=== PATIENT | female | born 1960 | race Caucasian/White ===

== ENCOUNTER → 2016-11-05 | Outpatient (CLI) | payer BC ==
[~2016-11-05] MED LIST: ACULAR 3 ML3 M1 OP; ANTIVERT/2525 M1 PO; BAYER ASPIRIN C81 MG PO; CIPRO500 MG PO; CIPROFLOXACIN500 MG PO; DIFLUCAN150 MG PO; MECLIZINE HCL25 M1 PO; MEDROL DOSEPAK4 MG PO; NITROFURANTOIN100 M2 PO; PYRIDIUM100 MG PO; PYRIDIUM200 MG PO; SYNTHROID0.025 MG PO; SYNTHROID0.05 MG PO; Tobrex Ophth S2.5 ML OPH; ULTRAM100 MG PO; XANAX0.25 MG PO; ZESTRIL20 MG PO; ZITHROMAX Z PA250 MG PO; ZOFRAN4 MG PO; Zofran4 MG PO
== END | disposition home or self-care (01) ==
LOC: RAD 14:38
DX: M25.511 Pain in right shoulder (principal)

== ENCOUNTER 2016-11-12 22:43 | Emergency (ER) | payer BC ==
[~2016-11-12] VITALS: Ht 160 cm; Wt 59.0 kg
[2016-11-12] MEDS ORDERED: ALPRAZOLAM0.25 M2 PO (22:49)
[2016-11-12] MEDS ORDERED: MOBIC7.5 MG PO (22:50)
[2016-11-12] MEDS ORDERED: TRAMADOL HCL50 MG PO (22:50)
[2016-11-12 23:21] LABS: BASO % 0.5 % (0.0-1.0); EOS # 0.1 10*3/uL (0.0-0.4); EOS % 1.9 % (1.0-4.0); HEMATOCRIT 39.8 % (37.0-47.0); HEMOGLOBIN 13.6 g/dl (12.0-16.0); LYMPH # 2.1 10*3/uL (1.3-4.4); LYMPH % 35.7 % (27.0-41.0); MEAN CELL VOLUME 95.7 fl (81.0-99.0); MEAN CORPUSCULAR HGB 32.7 pg (27.0-31.0); MEAN CORPUSCULAR HGB CONC 34.2 g/dl (33.0-37.0); MEAN PLATELET VOLUME 8.9 fl (9.6-12.3); MONO # 0.4 10*3/uL (0.1-1.0); MONO % 7.5 % (3.0-9.0); NEUT # 3.1 10*3/uL (2.3-7.9); NEUT % 54.2 % (47.0-73.0); PLATELET COUNT AUTOMATED 273 10*3/uL (130-400); RED BLOOD COUNT 4.16 10*6/uL (4.10-5.10); RED CELL DISTRI WIDTH 13.3 % (0-14.5); WHITE BLOOD COUNT 5.8 10*3/uL (4.8-10.8)
[2016-11-12 23:37] LABS: ALKALINE PHOSPHATASE 83 U/L (45-117); BILIRUBIN, TOTAL 0.3 mg/dl (0.2-1.0); BUN 13 mg/dl (7-24); CARBON DIOXIDE 28 mmol/L (21-32); CHLORIDE 104 mmol/L (98-107); EST GLOM FILT AFRICAN AMERICAN > 60 ml/min; GLUCOSE 134 mg/dL (65-99); POTASSIUM 3.9 mmol/L (3.5-5.1); SGOT/AST 21 IU/L (3-35); SGPT/ALT 20 U/L (12-78); SODIUM 140 mmol/L (136-145); TOTAL PROTEIN 7.6 gm/dL (6.4-8.2)
[2016-11-12] MEDS ORDERED: HYDROCODONE BIT1 T11 PO (23:54)
[2016-11-12] MEDS ORDERED: MEDROL DOSEPAK4 MG PO (23:54)
== END 2016-11-13 00:28 | disposition home or self-care (01) ==
LOC: ED 22:43
PROVIDERS: Physician Assistant
DX: K80.50 Calculus of bile duct without cholangitis or cholecystitis without obstruction (principal); M54.12 Radiculopathy, cervical region; F17.200 Nicotine dependence, unspecified, uncomplicated; Z90.710 Acquired absence of both cervix and uterus; Z98.890 Other specified postprocedural states; Z79.899 Other long term (current) drug therapy

== ENCOUNTER → 2016-11-22 | Outpatient (CLI) | payer BC ==
[~2016-11-22] MED LIST changes: +ALPRAZOLAM0.25 M2 PO; +HYDROCODONE BIT1 T11 PO; +MOBIC7.5 MG PO; +TRAMADOL HCL50 MG PO
== END | disposition home or self-care (01) ==
LOC: RAD 16:04
DX: R22.2 Localized swelling, mass and lump, trunk (principal)

== ENCOUNTER → 2017-01-28 | Outpatient (CLI) | payer BC ==
[2017-01-28 11:44] LABS: BASO % 0.5 % (0.0-1.0); EOS # 0.1 10*3/uL (0.0-0.4); EOS % 2.7 % (1.0-4.0); HEMATOCRIT 41.3 % (37.0-47.0); HEMOGLOBIN 14.2 g/dl (12.0-16.0); LYMPH # 1.1 10*3/uL (1.3-4.4); LYMPH % 24.8 % (27.0-41.0); MEAN CELL VOLUME 99.3 fl (81.0-99.0); MEAN CORPUSCULAR HGB 34.1 pg (27.0-31.0); MEAN CORPUSCULAR HGB CONC 34.4 g/dl (33.0-37.0); MONO # 0.4 10*3/uL (0.1-1.0); MONO % 8.4 % (3.0-9.0); NEUT # 2.8 10*3/uL (2.3-7.9); NEUT % 63.4 % (47.0-73.0); PLATELET COUNT AUTOMATED 306 10*3/uL (130-400); RED BLOOD COUNT 4.16 10*6/uL (4.10-5.10); RED CELL DISTRI WIDTH 13.1 % (0-14.5); WHITE BLOOD COUNT 4.4 10*3/uL (4.8-10.8)
[2017-01-28 12:15] LABS: ALBUMIN 3.8 gm/dl (3.1-4.5); BUN 13 mg/dl (7-24); CARBON DIOXIDE 29 mmol/L (21-32); CHLORIDE 104 mmol/L (98-107); CHOLESTEROL 201 mg/dL (<200); EST GLOM FILT AFRICAN AMERICAN > 60 ml/min; GLUCOSE 86 mg/dL (65-99); POTASSIUM 4.1 mmol/L (3.5-5.1); SGOT/AST 20 IU/L (3-35); SGPT/ALT 20 U/L (12-78); SODIUM 141 mmol/L (136-145); TRIGLYCERIDES 48 mg/dl (<150); VLDL CHOLESTEROL 10 mg/dL (6-40)
[2017-01-28 12:23] LABS: ALKALINE PHOSPHATASE 86 U/L (45-117); BILIRUBIN, TOTAL 0.4 mg/dl (0.2-1.0); FREE T4 1.01 ng/dl (0.76-1.46); HDL CHOLESTEROL 109 mg/dl (40-60); LDL CHOLESTEROL 82 mg/dL (9-159); THYROID STIM HORMONE (HS) 0.943 uIU/ml (0.358-4.75); TOTAL PROTEIN 7.5 gm/dL (6.4-8.2)
[2017-01-28 12:34] LABS: VITAMIN D, 25-HYDROXY 31.2 ng/mL (30-100)
[2017-01-28 12:35] LABS: FOLIC ACID 21.55 ng/mL (>5.38)
== END | disposition home or self-care (01) ==
LOC: LAB 11:13
PROVIDERS: Internal Medicine
DX: Z13.220 Encounter for screening for lipoid disorders (principal); Z13.21 Encounter for screening for nutritional disorder; Z13.1 Encounter for screening for diabetes mellitus; R53.81 Other malaise; E55.9 Vitamin D deficiency, unspecified; R06.02 Shortness of breath; R05 Cough; R09.81 Nasal congestion; Z87.891 Personal history of nicotine dependence

== ENCOUNTER → 2017-09-02 | Outpatient (CLI) | payer BC ==
[2017-09-02 10:22] LABS: EOS # 0.2 10*3/uL (0.0-0.4); EOS % 5.9 % (1.0-4.0); HEMATOCRIT 39.7 % (37.0-47.0); HEMOGLOBIN 13.6 g/dl (12.0-16.0); LYMPH # 0.9 10*3/uL (1.3-4.4); LYMPH % 32.2 % (27.0-41.0); MEAN CELL VOLUME 94.1 fl (81.0-99.0); MEAN CORPUSCULAR HGB 32.2 pg (27.0-31.0); MEAN CORPUSCULAR HGB CONC 34.3 g/dl (33.0-37.0); MEAN PLATELET VOLUME 8.9 fl (9.6-12.3); MONO # 0.2 10*3/uL (0.1-1.0); MONO % 7.7 % (3.0-9.0); NEUT # 1.5 10*3/uL (2.3-7.9); NEUT % 52.9 % (47.0-73.0); PLATELET COUNT AUTOMATED 252 10*3/uL (130-400); RED BLOOD COUNT 4.22 10*6/uL (4.10-5.10); RED CELL DISTRI WIDTH 12.1 % (0-14.5); WHITE BLOOD COUNT 2.9 10*3/uL (4.8-10.8)
[2017-09-02 10:54] LABS: ALKALINE PHOSPHATASE 89 U/L (45-117); BUN 10 mg/dl (7-24); CHLORIDE 104 mmol/L (98-107); CHOLESTEROL 189 mg/dL (<200); FREE T4 0.99 ng/dl (0.76-1.46); HDL CHOLESTEROL 103 mg/dl (40-60); LDL CHOLESTEROL 74 mg/dL (9-159); POTASSIUM 4.6 mmol/L (3.5-5.1); SGOT/AST 22 IU/L (3-35); SGPT/ALT 22 U/L (12-78); SODIUM 140 mmol/L (136-145); TOTAL PROTEIN 7.6 gm/dL (6.4-8.2); TRIGLYCERIDES 60 mg/dl (<150); VLDL CHOLESTEROL 12 mg/dL (6-40)
[2017-09-02 10:59] LABS: THYROID STIM HORMONE (HS) 0.791 uIU/ml (0.358-4.75)
== END | disposition home or self-care (01) ==
LOC: LAB 10:01
PROVIDERS: Internal Medicine
DX: Z13.220 Encounter for screening for lipoid disorders (principal); Z13.1 Encounter for screening for diabetes mellitus; Z13.21 Encounter for screening for nutritional disorder; E78.2 Mixed hyperlipidemia; R53.81 Other malaise; E55.9 Vitamin D deficiency, unspecified

== ENCOUNTER → 2017-09-05 | Outpatient (CLI) | payer BC ==
[2017-09-05 14:45] LABS: BASO % 0.3 % (0.0-1.0); EOS # 0.1 10*3/uL (0.0-0.4); HEMATOCRIT 39.1 % (37.0-47.0); HEMOGLOBIN 13.7 g/dl (12.0-16.0); LYMPH # 1.1 10*3/uL (1.3-4.4); LYMPH % 15.5 % (27.0-41.0); MEAN CELL VOLUME 92.7 fl (81.0-99.0); MEAN CORPUSCULAR HGB 32.5 pg (27.0-31.0); MEAN PLATELET VOLUME 8.8 fl (9.6-12.3); MONO # 0.5 10*3/uL (0.1-1.0); MONO % 6.5 % (3.0-9.0); NEUT # 5.4 10*3/uL (2.3-7.9); NEUT % 76.4 % (47.0-73.0); PLATELET COUNT AUTOMATED 261 10*3/uL (130-400); RED BLOOD COUNT 4.22 10*6/uL (4.10-5.10); RED CELL DISTRI WIDTH 12.3 % (0-14.5); WHITE BLOOD COUNT 7.1 10*3/uL (4.8-10.8)
== END | disposition home or self-care (01) ==
LOC: LAB 14:08
PROVIDERS: Internal Medicine
DX: D72.9 Disorder of white blood cells, unspecified (principal)

== ENCOUNTER 2017-09-13 13:32 | Inpatient (IN) | payer BC ==
--- NOTE | ~2017-09-13 | PR ---
[place], [place] PROGRESS NOTE [id number] UN[facility] #: [id number] ROOM: 532 DOCTOR: URIAH FOURNIER MD BIRTHDATE: [birth year] DOS: 09/14/2017 SUBJECTIVE: The patient is feeling much better this morning. She is able to complete sentences while she is talking without difficulty breathing. She had a fairly good night after the IV steroids were started. OBJECTIVE: VITAL SIGNS: Graphic trend shows pressure 120/72, pulse of 86, respirations 18, temperature 97.7. LUNGS: Clear this morning. HEART: Regular. ABDOMEN: Soft. EXTREMITIES: Without any edema. ASSESSMENT AND PLAN: Acute exacerbation of chronic obstructive pulmonary disease with acute respiratory distress syndrome, which is corrected and improved this morning. The plan is to discharge her home. She has found an old nebulizer that belongs to her who . We will start her on breathing treatments at home, so she can be discharged today. URIAH FOURNIER MD CM:PNTRANS [id number] URIAH FOURNIER MD 09/14/17 1348 interface
--- NOTE | ~2017-09-13 | WRIGHTHP ---
[place], [place] PATIENT HISTORY AND PHYSICAL EXAM NAME: MAURA MACIAS [facility] #: [id number] UNIT #: [id number] ROOM: 532 DOCTOR: URIAH FOURNIER MD BIRTHDATE: [birth year] DOS: 09/13/2017 HISTORY OF PRESENT ILLNESS: This patient is 57 years old. She comes into the office with complaints of increasing shortness of breath. The patient has had bronchitis recently, was treated with antibiotics and steroids, but unfortunately continues to smoke. By the time, she arrived to the Emergency Room. She had hard time breathing with difficulty holding conversations. She did not have any chest pains or palpitations, does not have any fever or chills, does not have any nausea or any emesis. She was transferred to the hospital for admission. Oxygen saturation was normal on room air, but she was quite tachycardic when she exercised. Heart rate sometimes going to 130s indicating respiratory distress. PAST MEDICAL HISTORY: Significant for; 1. Benign hypertension. 2. Hypothyroidism. 3. Moderate cigarette smoker. 4. Chronic back pain. 5. Generalized anxiety disorder. MEDICATIONS: She is on currently are lisinopril 20, levothyroxine 50 mcg, Xanax 0.25 t.i.d., tramadol 50 mg q.i.d., Meloxicam 7.5 b.i.d., vitamin D 50,000 units once a week and potassium 10 daily. SOCIAL HISTORY: Smoker of about half to 1 pack of cigarettes a day. Denies using any alcohol. PHYSICAL EXAMINATION: GENERAL: The patient is awake and alert and oriented. VITAL SIGNS: Blood pressure is 120/72, pulse of 86, respirations 18 and temperature 97.7. LUNGS: Diminished breath sounds. Scattered wheezes and rhonchi heard. HEART: Regular. ABDOMEN: Soft, scaphoid and nontender. EXTREMITIES: Without any edema. LABORATORY DATA: White cell count is 74.5, hemoglobin 14.3 and hematocrit 41.0. Chest x-ray showed COPD. BMP: Glucose 90, BUN 12 and creatinine 0.62. Electrolytes normal. ASSESSMENT AND PLAN: 1. Acute exacerbation of chronic obstructive pulmonary disease. The patient is placed on IV steroids and breathing treatments. 2. Acute tracheobronchitis, failed outpatient treatment with steroids and antibiotics. The patient has been admitted for the IV treatment with antibiotics and steroids. 3. Benign hypertension, controlled. 4. Chronic back pain. Continue home medications. [place], [place] PATIENT HISTORY AND PHYSICAL EXAM [facility]: [id number] UN[facility] #: [id number] ROOM: [facility] DOCTOR: URIAH FOURNIER MD BIRTHDATE: [birth year] URIAH FOURNIER MD CM:HISPHYS:PATIENT HISTORY AND PHYSICAL EXAMINATION 9 URIAH FOURNIER MD 09/14/17919 interface
[2017-09-13 15:02] LABS: BASO % 0.7 % (0.0-1.0); EOS # 0.1 10*3/uL (0.0-0.4); EOS % 1.3 % (1.0-4.0); HEMATOCRIT 41.4 % (37.0-47.0); LYMPH # 1.5 10*3/uL (1.3-4.4); LYMPH % 32.5 % (27.0-41.0); MEAN CELL VOLUME 95.2 fl (81.0-99.0); MEAN CORPUSCULAR HGB 32.2 pg (27.0-31.0); MEAN CORPUSCULAR HGB CONC 33.8 g/dl (33.0-37.0); MEAN PLATELET VOLUME 8.9 fl (9.6-12.3); MONO # 0.4 10*3/uL (0.1-1.0); MONO % 9.5 % (3.0-9.0); NEUT # 2.5 10*3/uL (2.3-7.9); NEUT % 55.8 % (47.0-73.0); PLATELET COUNT AUTOMATED 306 10*3/uL (130-400); RED BLOOD COUNT 4.35 10*6/uL (4.10-5.10); RED CELL DISTRI WIDTH 12.5 % (0-14.5); WHITE BLOOD COUNT 4.5 10*3/uL (4.8-10.8)
[2017-09-13] MEDS ORDERED: POTASSIUM CHLO10 ME5 PO (15:22)
[2017-09-13] MEDS ORDERED: VITAMIN D50000 UNIT PO (15:22)
[2017-09-13 15:26] LABS: BUN 12 mg/dl (7-24); CHLORIDE 103 mmol/L (98-107); CREATININE 0.62 mg/dL (0.55-1.02); POTASSIUM 4.9 mmol/L (3.5-5.1); SODIUM 138 mmol/L (136-145)
[2017-09-13 16:00] VITALS: BP 120/73
[2017-09-13 20:00] VITALS: BP 134/86
[2017-09-14] VITALS: BP 121/53
[2017-09-14 08:00] VITALS: BP 120/72
[2017-09-14] MEDS ORDERED: DUONEB 3 MG/3 ML3 M1 INH (08:49)
[2017-09-14] MEDS ORDERED: CEFUROXIME AXE250 MG PO (08:49)
[2017-09-14] MEDS ORDERED: PREDNISONE5 MG PO (08:49)
== END 2017-09-14 09:40 | disposition home or self-care (01) | DRG 191 ==
LOC: 5E 13:32
PROVIDERS: Internal Medicine
DX: J44.0 Chronic obstructive pulmonary disease with (acute) lower respiratory infection (principal); J80 Acute respiratory distress syndrome; J44.1 Chronic obstructive pulmonary disease with (acute) exacerbation; G89.29 Other chronic pain; I10 Essential (primary) hypertension; J20.9 Acute bronchitis, unspecified; M54.9 Dorsalgia, unspecified

== ENCOUNTER 2017-12-25 07:08 | Emergency (ER) | payer BC ==
[~2017-12-25] VITALS: Ht 160 cm; Wt 56.7 kg
[~2017-12-25 07:08] MED LIST changes: +CEFUROXIME AXE250 MG PO; +DUONEB 3 MG/3 ML3 M1 INH; +POTASSIUM CHLO10 ME5 PO; +PREDNISONE5 MG PO; +VITAMIN D50000 UNIT PO
[2017-12-25] MEDS ORDERED: PROVENTIL HFA6.7 GM INH (07:31)
[2017-12-25 07:37] LABS: BASO # 0.1 10*3/uL (0.0-0.1); EOS # 0.2 10*3/uL (0.0-0.4); EOS % 4.7 % (1.0-4.0); HEMATOCRIT 38.2 % (37.0-47.0); HEMOGLOBIN 12.9 g/dl (12.0-16.0); LYMPH # 1.5 10*3/uL (1.3-4.4); LYMPH % 29.2 % (27.0-41.0); MEAN CELL VOLUME 95.5 fl (81.0-99.0); MEAN CORPUSCULAR HGB 32.3 pg (27.0-31.0); MEAN CORPUSCULAR HGB CONC 33.8 g/dl (33.0-37.0); MEAN PLATELET VOLUME 9.1 fl (9.6-12.3); MONO # 0.5 10*3/uL (0.1-1.0); MONO % 8.9 % (3.0-9.0); NEUT # 2.8 10*3/uL (2.3-7.9); PLATELET COUNT AUTOMATED 299 10*3/uL (130-400); RED CELL DISTRI WIDTH 12.4 % (0-14.5); WHITE BLOOD COUNT 5.1 10*3/uL (4.8-10.8)
[2017-12-25 07:49] LABS: ACT PARTIAL THROMBO TIME 24.3 SECONDS (20.8-31.5); INTERNATIONAL NORM RATIO 0.9 (2.0-3.5)
[2017-12-25 07:57] LABS: ALBUMIN 3.6 gm/dl (3.1-4.5); ALKALINE PHOSPHATASE 83 U/L (45-117); BUN 13 mg/dl (7-24); CHLORIDE 106 mmol/L (98-107); CREATININE 0.63 mg/dL (0.55-1.02); POTASSIUM 4.2 mmol/L (3.5-5.1); SGOT/AST 25 IU/L (3-35); SGPT/ALT 20 U/L (12-78); SODIUM 141 mmol/L (136-145); TOTAL PROTEIN 7.1 gm/dL (6.4-8.2); TROPONIN I < 0.015 ng/ml (<0.045)
[2017-12-25] MEDS ORDERED: PREDNISONE50 MG PO (08:12)
== END 2017-12-25 08:45 | disposition home or self-care (01) ==
LOC: ED 07:08
PROVIDERS: Emergency Medicine
DX: J44.1 Chronic obstructive pulmonary disease with (acute) exacerbation (principal); F41.9 Anxiety disorder, unspecified; I10 Essential (primary) hypertension; Z79.899 Other long term (current) drug therapy

== ENCOUNTER → 2019-03-16 | Outpatient (CLI) | payer BC ==
[~2019-03-16] MED LIST changes: +PREDNISONE50 MG PO; +PROVENTIL HFA6.7 GM INH
[2019-03-17 07:08] LABS: RHEUMATOID ARTHRITIS FACTOR 11.7 IU/mL (0.0-13.9)
[2019-03-18 15:06] LABS: ANTI-DSDNA ANTIBODIES 096339 <1 IU/mL (0-9)
[2019-03-18 19:07] LABS: CCP ANTIBODIES IGG/IGA 5 units (0-19)
== END | disposition home or self-care (01) ==
LOC: LAB 16:37
PROVIDERS: Internal Medicine
DX: M06.4 Inflammatory polyarthropathy (principal)

== ENCOUNTER 2019-05-21 20:58 | Inpatient (IN) | payer BC ==
[2019-05-21] VITALS (9 sets, daily range): BP systolic 153–188; BP diastolic 82–105
[~2019-05-21] VITALS: Ht 160 cm; Wt 70.5 kg
[~2019-05-21 20:58] MED LIST changes: -SYNTHROID0.05 MG PO; +Synthroid,Levo50 MCG PO
[2019-05-21 21:26] LABS: BASO % 0.8 % (0.0-1.0); EOS # 0.3 10*3/uL (0.0-0.4); EOS % 5.1 % (1.0-4.0); HEMATOCRIT 35.2 % (37.0-47.0); HEMOGLOBIN 11.8 g/dl (12.0-16.0); LYMPH # 1.6 10*3/uL (1.3-4.4); LYMPH % 31.2 % (27.0-41.0); MEAN CELL VOLUME 97.5 fl (81.0-99.0); MEAN CORPUSCULAR HGB 32.7 pg (27.0-31.0); MEAN CORPUSCULAR HGB CONC 33.5 g/dl (33.0-37.0); MEAN PLATELET VOLUME 9.9 fl (9.6-12.3); MONO # 0.5 10*3/uL (0.1-1.0); MONO % 9.7 % (3.0-9.0); NEUT # 2.8 10*3/uL (2.3-7.9); NEUT % 52.8 % (47.0-73.0); PLATELET COUNT AUTOMATED 330 10*3/uL (130-400); RED BLOOD COUNT 3.61 10*6/uL (4.10-5.10); RED CELL DISTRI WIDTH 13.4 % (0-14.5); WHITE BLOOD COUNT 5.3 10*3/uL (4.8-10.8)
[2019-05-21 21:58] LABS: ALBUMIN 3.9 gm/dl (3.1-4.5); ALKALINE PHOSPHATASE 85 U/L (45-117); BUN 11 mg/dl (7-24); CHLORIDE 106 mmol/L (98-107); CREATININE 0.71 mg/dL (0.55-1.02); POTASSIUM 3.6 mmol/L (3.5-5.1); SGOT/AST 21 IU/L (3-35); SGPT/ALT 26 U/L (12-78); SODIUM 138 mmol/L (136-145); TROPONIN I < 0.015 ng/ml (<0.045)
[2019-05-21 22:20] LABS: ACT PARTIAL THROMBO TIME 27.4 SECONDS (20.0-32.1); INTERNATIONAL NORM RATIO 0.9 (2.0-3.5)
--- NOTE | 2019-05-21 22:41 | NUR ---
PT RETURNED FROM CT. PT REMAINS PAIN FREE.
[2019-05-22] VITALS (8 sets, daily range): BP systolic 106–182; BP diastolic 63–98
--- NOTE | 2019-05-22 00:30 | NUR ---
A 59 YEAR OLD FEMALE PATIENT, admitted to ICU, under the services of URIAH Maradiaga MD with a diagnosis of CHEST PAIN. Chief complaint is MIDSTERNAL/LEFT CHEST PAIN, WORSENS WITH DEEP BREATH. Patient arrived via CART FROM ER. Monitor applied. Initial assessment completed. Vital signs taken and recorded. See assessment for past medical history, medications and allergies. Patient and/or family oriented to unit. [facility] ICU(TELEMETRY PATIENT) visitation policy reviewed. Clothing/patient valuable form completed. MILTON MCCULLOUGH
--- NOTE | 2019-05-22 01:00 | NUR ---
SPOKE WITH DR FOURNIER REGARDING INPATIENT, ORDERS RECIEVED.
--- NOTE | 2019-05-22 02:00 | NUR ---
MEDICATION RECONCILLIATION COMPLETED WITH PATIENT USING MEDICATION CLAIMS HISTORY AND PATIENTS OWN RECOLLECTION
[2019-05-22] MEDS ORDERED: Amitriptyline H10 MG PO (02:01)
--- NOTE | 2019-05-22 05:45 | NUR ---
DR FRANCO CALLED REGARDING CHANNEL MAN CONSULT, STATES THAT DR MELLO WILL BE ON THIS MORNING AND THAT HE WILL SEE THE PATIENT.
[2019-05-22 06:20] LABS: EOS # 0.3 10*3/uL (0.0-0.4); EOS % 8.3 % (1.0-4.0); HEMATOCRIT 33.2 % (37.0-47.0); HEMOGLOBIN 10.8 g/dl (12.0-16.0); LYMPH # 1.3 10*3/uL (1.3-4.4); LYMPH % 33.1 % (27.0-41.0); MEAN CELL VOLUME 97.9 fl (81.0-99.0); MEAN CORPUSCULAR HGB 31.9 pg (27.0-31.0); MEAN CORPUSCULAR HGB CONC 32.5 g/dl (33.0-37.0); MEAN PLATELET VOLUME 9.5 fl (9.6-12.3); MONO # 0.4 10*3/uL (0.1-1.0); MONO % 11.1 % (3.0-9.0); NEUT # 1.8 10*3/uL (2.3-7.9); NEUT % 46.2 % (47.0-73.0); PLATELET COUNT AUTOMATED 292 10*3/uL (130-400); RED BLOOD COUNT 3.39 10*6/uL (4.10-5.10); RED CELL DISTRI WIDTH 13.2 % (0-14.5); WHITE BLOOD COUNT 3.9 10*3/uL (4.8-10.8)
[2019-05-22 06:43] LABS: CHLORIDE 106 mmol/L (98-107); POTASSIUM 3.3 mmol/L (3.5-5.1); SODIUM 140 mmol/L (136-145)
[2019-05-22 06:52] LABS: ALBUMIN 3.5 gm/dl (3.1-4.5); ALKALINE PHOSPHATASE 75 U/L (45-117); BUN 9 mg/dl (7-24); SGOT/AST 20 IU/L (3-35); SGPT/ALT 25 U/L (12-78); TOTAL PROTEIN 6.4 gm/dL (6.4-8.2)
--- NOTE | 2019-05-22 08:42 | NUR ---
CLONIDINE 0.1MG GIVEN PER ORDER FOR BP 180/98 AFTER ORDER RECEIVED FROM DR FOURNIER.
--- NOTE | 2019-05-22 10:54 | NUR ---
PT TO STRESS TEST VIA WC.
--- NOTE | 2019-05-22 11:35 | NUR ---
INFORMED CONSENT SIGNED FOR LEXISCAN STRESS TEST WITH DR. MARTINEZ. RESTING EKG NSR, HR 67, BP 140/84. PULSE OX 92%, LUNGS BILATERAL RHONCHI. COMPLETED ONE MINUTE OF LEXISCAN PROTOCOL RECEIVING LEXISCAN 0.4MG OVER 10 SEC[address] NO ARRHYTHMI[address] OR ST CHANGES NOTED. PT C/O SOB, CHEST DISCOMFORT AND HEADACHE. LAST RECOVERY HR 100, BP 132/84. WAITING NUCLEAR SCANNING IN STABLE CONDITION.
--- NOTE | 2019-05-22 12:45 | NUR ---
PT RETURNED TO FLOOR VIA W/C FROM CARDIAC REHAB. NO C/O VOICED AT PRESENT TIME. CALL LIGHT IN REACH.
--- NOTE | 2019-05-22 15:00 | NUR ---
Storage Administrator in to talk to patient. Patient states lives at home alone with her family checking in on her. There are 5 steps in the home. Physician: Dr. Karime [facility] Patient's level of ADLs: INDEPENDENT Patient has working utilities: yes DME: nebulizer Follow-up physician's appointment after d/c: she prefers to make her own follow up appt after discharge Does patient want to access PORTAL?: no Discharge plan discussed with patient. She lives at home alone with her family checking in on her. She is independent in her ADLs and ambulation. Discussed home health care services and she denies any home needs at this time. When medically stable she will be discharged to home. She will drive herself home as her car is here in the parking lot. DONYA AMAYA
--- NOTE | 2019-05-22 17:13 | NUR ---
PATIENT MEDICATED WITH ULTRAM PER PRN ORDER FOR C/O PAIN.
[2019-05-23] VITALS: BP 139/83
[2019-05-23 08:00] VITALS: BP 156/100
[2019-05-23] MEDS ORDERED: CEFUROXIME AXE250 MG PO (08:41)
[2019-05-23] MEDS ORDERED: PREDNISONE5 MG PO (08:41)
--- NOTE | 2019-05-23 09:15 | NUR ---
Discharge instructions reviewed with patient/family. Patient receptive and verbalizes understanding. Follow-up care arranged. Written instructions given to patient/family. FELICITAS ALEXANDRA
== END 2019-05-23 10:10 | disposition home or self-care (01) | DRG 191 ==
LOC: ED 20:58 → EDHOLD 23:53 → ICCU 23:53 → 4E 05-22 12:51
PROVIDERS: Emergency Medicine; ADMIT Internal Medicine
PROC: 4A02XM4 Measurement of Cardiac Total Activity, External Approach (ICD-10-PCS; principal; 2019-05-22)
PROC: 3E073KZ Introduction of Other Diagnostic Substance into Coronary Artery, Percutaneous Approach (ICD-10-PCS; principal; 2019-05-22)
DX: J44.1 Chronic obstructive pulmonary disease with (acute) exacerbation (principal); J96.11 Chronic respiratory failure with hypoxia; R07.2 Precordial pain; I10 Essential (primary) hypertension; F17.210 Nicotine dependence, cigarettes, uncomplicated; F41.1 Generalized anxiety disorder; E03.9 Hypothyroidism, unspecified; Z90.710 Acquired absence of both cervix and uterus; Z98.891 History of uterine scar from previous surgery; Z82.49 Family history of ischemic heart disease and other diseases of the circulatory system; Z83.3 Family history of diabetes mellitus; Z80.9 Family history of malignant neoplasm, unspecified

== ENCOUNTER → 2019-07-10 | Outpatient (CLI) | payer BC ==
[~2019-07-10] MED LIST changes: +Amitriptyline H10 MG PO
== END | disposition home or self-care (01) ==
LOC: LAB 14:54
DX: J45.901 Unspecified asthma with (acute) exacerbation (principal)

== ENCOUNTER 2019-08-14 18:49 | Emergency (ER) | payer BC ==
[~2019-08-14] VITALS: Ht 152.4 cm; Wt 68.0 kg
[2019-08-14 20:11] LABS: BASO % 0.5 % (0.0-1.0); EOS # 0.1 10*3/uL (0.0-0.4); EOS % 1.1 % (1.0-4.0); HEMATOCRIT 43.5 % (37.0-47.0); HEMOGLOBIN 14.7 g/dl (12.0-16.0); LYMPH # 1.2 10*3/uL (1.3-4.4); LYMPH % 20.8 % (27.0-41.0); MEAN CELL VOLUME 95.6 fl (81.0-99.0); MEAN CORPUSCULAR HGB 32.3 pg (27.0-31.0); MEAN CORPUSCULAR HGB CONC 33.8 g/dl (33.0-37.0); MONO # 0.5 10*3/uL (0.1-1.0); MONO % 8.5 % (3.0-9.0); NEUT # 3.9 10*3/uL (2.3-7.9); NEUT % 68.9 % (47.0-73.0); PLATELET COUNT AUTOMATED 340 10*3/uL (130-400); RED BLOOD COUNT 4.55 10*6/uL (4.10-5.10); RED CELL DISTRI WIDTH 12.3 % (0-14.5); WHITE BLOOD COUNT 5.6 10*3/uL (4.8-10.8)
[2019-08-14 20:23] LABS: ACT PARTIAL THROMBO TIME 28.5 SECONDS (20.0-32.1); INTERNATIONAL NORM RATIO 0.9 (2.0-3.5)
[2019-08-14 20:27] LABS: ALBUMIN 4.5 gm/dl (3.1-4.5); ALKALINE PHOSPHATASE 94 U/L (45-117); BUN 12 mg/dl (7-24); CHLORIDE 101 mmol/L (98-107); LIPASE 110 U/L (73-393); POTASSIUM 3.6 mmol/L (3.5-5.1); SGOT/AST 17 IU/L (3-35); SGPT/ALT 21 U/L (12-78); SODIUM 134 mmol/L (136-145); TOTAL PROTEIN 8.2 gm/dL (6.4-8.2)
[2019-08-14 20:36] LABS: TROPONIN I < 0.015 ng/ml (<0.045)
[2019-08-14 20:58] LABS: BILIRUBIN NEGATIVE (NEGATIVE); BLOOD NEGATIVE (NEGATIVE); CLARITY CLEAR (CLEAR); COLOR YELLOW (YELLOW); GLUCOSE NEGATIVE (NEGATIVE); KETONE NEGATIVE (NEGATIVE); LEUKO ESTERASE NEGATIVE (NEGATIVE); NITRITE NEGATIVE (NEGATIVE); PH 6.5 (5.0-9.0); SPECIFIC GRAVITY <= 1.005 (1.005-1.030); UROBILINOGEN 0.2 E.U./dl (0.2-1.0)
[2019-08-14 21:07] LABS: BACTERIA 1+
== END 2019-08-14 21:05 | disposition home or self-care (01) ==
LOC: ED 18:49
PROVIDERS: Physician Assistant
DX: F41.9 Anxiety disorder, unspecified (principal); R41.0 Disorientation, unspecified; R42 Dizziness and giddiness; I10 Essential (primary) hypertension; J44.9 Chronic obstructive pulmonary disease, unspecified; G43.909 Migraine, unspecified, not intractable, without status migrainosus; E07.9 Disorder of thyroid, unspecified; F17.200 Nicotine dependence, unspecified, uncomplicated; Z79.2 Long term (current) use of antibiotics; Z79.899 Other long term (current) drug therapy; Z90.710 Acquired absence of both cervix and uterus; Z90.49 Acquired absence of other specified parts of digestive tract

== ENCOUNTER 2019-08-27 13:24 | Emergency (ER) | payer OTHER ==
[~2019-08-27] VITALS: Ht 152.4 cm; Wt 54.4 kg
[2019-08-27 14:45] LABS: BASO # 0.1 10*3/uL (0.0-0.1); BASO % 0.8 % (0.0-1.0); EOS # 0.2 10*3/uL (0.0-0.4); EOS % 2.3 % (1.0-4.0); HEMATOCRIT 42.5 % (37.0-47.0); HEMOGLOBIN 14.5 g/dl (12.0-16.0); LYMPH # 1.1 10*3/uL (1.3-4.4); LYMPH % 16.9 % (27.0-41.0); MEAN CELL VOLUME 96.2 fl (81.0-99.0); MEAN CORPUSCULAR HGB 32.8 pg (27.0-31.0); MEAN CORPUSCULAR HGB CONC 34.1 g/dl (33.0-37.0); MEAN PLATELET VOLUME 9.4 fl (9.6-12.3); MONO # 0.5 10*3/uL (0.1-1.0); MONO % 7.7 % (3.0-9.0); NEUT # 4.8 10*3/uL (2.3-7.9); PLATELET COUNT AUTOMATED 338 10*3/uL (130-400); RED BLOOD COUNT 4.42 10*6/uL (4.10-5.10); RED CELL DISTRI WIDTH 12.4 % (0-14.5); WHITE BLOOD COUNT 6.6 10*3/uL (4.8-10.8)
[2019-08-27 15:16] LABS: ALBUMIN 4.5 gm/dl (3.1-4.5); ALKALINE PHOSPHATASE 94 U/L (45-117); BUN 10 mg/dl (7-24); CHLORIDE 99 mmol/L (98-107); CREATININE 0.79 mg/dL (0.55-1.02); POTASSIUM 4.1 mmol/L (3.5-5.1); SGOT/AST 19 IU/L (3-35); SGPT/ALT 21 U/L (12-78); SODIUM 134 mmol/L (136-145); TOTAL PROTEIN 8.3 gm/dL (6.4-8.2)
[2019-08-27 15:21] LABS: TROPONIN I < 0.015 ng/ml (<0.045)
[2019-08-27] MEDS ORDERED: VISTARIL25 M2 PO (15:57)
== END 2019-08-27 16:19 | disposition home or self-care (01) ==
LOC: ED 13:24
PROVIDERS: Physician Assistant
DX: F41.9 Anxiety disorder, unspecified (principal); R42 Dizziness and giddiness; F32.9 Major depressive disorder, single episode, unspecified; R25.1 Tremor, unspecified; G43.909 Migraine, unspecified, not intractable, without status migrainosus; I10 Essential (primary) hypertension; J44.9 Chronic obstructive pulmonary disease, unspecified; E07.9 Disorder of thyroid, unspecified; F17.200 Nicotine dependence, unspecified, uncomplicated; Z90.710 Acquired absence of both cervix and uterus; Z90.49 Acquired absence of other specified parts of digestive tract; Z79.2 Long term (current) use of antibiotics; Z79.899 Other long term (current) drug therapy

== ENCOUNTER 2019-08-29 13:54 | Inpatient (IN) | payer OTHER ==
[~2019-08-29] VITALS: Ht 154.9 cm; Wt 63.7 kg
[~2019-08-29 13:54] MED LIST changes: +VISTARIL25 M2 PO
--- NOTE | 2019-08-29 14:30 | NUR ---
Time: 0 A 59 year old FEMALE admitted to under services of URIAH NGUYEN MD. Pt. arrived via ambulatory from [place]. Chief complaint: .TACHYCARDIA MICHEAL RODRIGEZ
[2019-08-29] MEDS ORDERED: CELEBREX100 MG PO (15:43)
[2019-08-29 16:00] VITALS: BP 125/80
[2019-08-29 17:08] LABS: BASO # 0.1 10*3/uL (0.0-0.1); BASO % 0.8 % (0.0-1.0); EOS # 0.1 10*3/uL (0.0-0.4); EOS % 1.2 % (1.0-4.0); HEMOGLOBIN 14.1 g/dl (12.0-16.0); LYMPH # 1.4 10*3/uL (1.3-4.4); LYMPH % 21.4 % (27.0-41.0); MEAN CELL VOLUME 94.5 fl (81.0-99.0); MEAN CORPUSCULAR HGB 32.5 pg (27.0-31.0); MEAN CORPUSCULAR HGB CONC 34.4 g/dl (33.0-37.0); MEAN PLATELET VOLUME 9.1 fl (9.6-12.3); MONO # 0.6 10*3/uL (0.1-1.0); MONO % 8.5 % (3.0-9.0); NEUT # 4.5 10*3/uL (2.3-7.9); NEUT % 67.8 % (47.0-73.0); PLATELET COUNT AUTOMATED 310 10*3/uL (130-400); RED BLOOD COUNT 4.34 10*6/uL (4.10-5.10); RED CELL DISTRI WIDTH 12.1 % (0-14.5); WHITE BLOOD COUNT 6.6 10*3/uL (4.8-10.8)
[2019-08-29 17:20] LABS: BUN 10 mg/dl (7-24); CHLORIDE 98 mmol/L (98-107); CREATININE 0.67 mg/dL (0.55-1.02); SODIUM 133 mmol/L (136-145)
[2019-08-29 20:00] VITALS: BP 90/59
--- NOTE | 2019-08-29 21:07 | NUR ---
PRN VISTERIL GIVEN FOR DIFFICULTY SLEEPING. WILL MONITOR AND REASSESS PATIENT.
--- NOTE | 2019-08-29 22:00 | NUR ---
PRN VISTERIL WAS EFFECTIVE. PT IS CURRENTLY SLEEPING AND SHOWS NO SIGNS OF DISTRESS.
[2019-08-29 23:50] VITALS: BP 90/54
--- NOTE | 2019-08-30 05:16 | NUR ---
24 HR chart check completed.
--- NOTE | 2019-08-30 08:17 | NUR ---
IN TO DO PATIENT ASSESSMENT AND SHE IS GETTING AN ECHO DONE, WILL COME BACK ONE THEY ARE COMPLETE WITH ECHO
--- NOTE | 2019-08-30 09:00 | NUR ---
Load Manager in to see patient. She is currently having an echo completed at bedside. Will follow up at a later time.
--- NOTE | 2019-08-30 09:24 | NUR ---
CONTACTED DR FOURNIER PER PT REQUEST OF NOT HAVING A BOWEL MOVEMENT IN 3-4 DAY, PUT ORDERS IN WANTED
[2019-08-30 09:59] VITALS: BP 102/62
[2019-08-30 10:55] LABS: FREE T4 1.11 ng/dl (0.76-1.46)
[2019-08-30 10:59] LABS: THYROID STIM HORMONE (HS) 1.28 uIU/ml (0.358-4.75)
--- NOTE | 2019-08-30 11:55 | NUR ---
Nutritional Support Services Note: Pt evaulated for malnutrition per nursing screen. Pt states that prior to admission she had a lack of appetite for one day. Appetite is good and pt ate 100% for breakfast. Albumin is wnl. Wt is stable per patient. No malnutrition noted. Carrie Kevin Rdn Ld
[2019-08-30 12:00] VITALS: BP 98/62
--- NOTE | 2019-08-30 12:28 | NUR ---
ASSESSING PT AT THIS TIME TO SEE IF SHE WAS ABLE TO MOVE HER BOWELS SINCE TAKING THE DULCOLAX AND SHE STATES NOT YET BUT HER STOMACH IS MAKING NOISES AND FEELS LIKE IT MAY BE COMING
--- NOTE | 2019-08-30 13:46 | NUR ---
Pilot Submersible in to talk to patient. Patient states lives at home alone with her family checking in on her. There are 5 steps in the home. Physician: Dr. Karime Bravo [facility]: none Patient's level of ADLs: INDEPENDENT Patient has working utilities: yes DME: nebulizer Follow-up physician's appointment after d/c: she prefers to make her own follow up appt after discharge Does patient want to access PORTAL?: no Discharge plan discussed with patient. She lives at home alone with her family checking in on her. She is independent in her ADLs and ambulation. Discussed home health care services and she denies any home needs at this time. When medically stable she will be discharged to home. She will drive herself home as she drove herself here. DONYA AMAYA
[2019-08-30 16:00] VITALS: BP 93/56
[2019-08-30 20:00] VITALS: BP 100/71
--- NOTE | 2019-08-30 20:42 | NUR ---
24 HR chart check completed.
[2019-08-31] VITALS: BP 112/74
--- NOTE | 2019-08-31 07:00 | NUR ---
IN PT ROOM TO DO ASSESSMENT, PT IS TEARFUL AND ANXIOUS, AND STATES "SHE IS FINE". PT WAS PREVIOUSLY GIVEN A VISTARIL SO HOPING THAT KICKS IN TOO. TEACHING DEEP BREATHING. PT ASKING FOR DR FOURNIER TO COME INTO ROOM, I WILL MAKE SURE ONCE DR FOURNIER IS IN THE BUILDING SHE WILL SEE THE PT.
--- NOTE | 2019-08-31 07:08 | NUR ---
PRN VISTARIL WAS GIVING FOR ANXIETY. PT BEGAN CRYING AND BREATHING HEAVY. ENTERED PT'S ROOM AND CHECK PULSE OX- 100% RA. PT STATED SHE WAS NOT SHE WHAT WHAT WRONG. WILL CONTINUE TO MONITOR PATIENT.
[2019-08-31 07:30] LABS: THYROID STIM HORMONE (HS) 2.31 uIU/ml (0.358-4.75); THYROXINE (T4) TOTAL 7.2 ug/dl (4.8-13.9)
--- NOTE | 2019-08-31 07:57 | NUR ---
Notified [facility] of Dr. Arteaga consult
--- NOTE | 2019-08-31 08:01 | NUR ---
CALLED [facility] FOR DR BLANC CONSULT AND THEY STATE THAT THEY ARE AWARE OF THIS CONSULT INDIRA
--- NOTE | 2019-08-31 09:25 | NUR ---
Mortgage Funder in to see patient. Discussed BHU vs adjustment in medications. She is agreeable to go to U if it is needed or adjust medications if needed. Informed U nurse practitioner will see patient today and she verbalized an understanding. She will agree with what the nurse practitioner believes would be best for her. Awaiting consult.
--- NOTE | 2019-08-31 10:30 | NUR ---
U MANUFACTURING TEST ENGINEER WAS IN TO EVALUATE THE PATIENT AND SHE STATES THAT THE PT IS IN AGREEMENT TO GO TO [facility] FOR FURTHER CARE.SHE NOTES THAT THEY ARE WAITING FOR 2 DISCHARGES TO LEAVE TODAY THEN THEY CAN GET A BED FOR HER
[2019-08-31 12:00] VITALS: BP 157/93
--- NOTE | 2019-08-31 14:47 | NUR ---
Spoke to Concepcion at [facility] regarding mental health inpatient prior authorization. IP isra 08/31-09/04, 5 days. Auth # [id number]. Patient, nurse, and BHU notified.
[2019-08-31 16:00] VITALS: BP 125/62
--- NOTE | 2019-08-31 16:10 | NUR ---
CALLED DR FOURNIER TO UPDATES HER OF THE CT ABDOMEN RESULTS AND TO LET HER KNOW THAT THE U HAS A BED READY. SHE STATES IT IS OK TO DISCHARGE THE PATIENT AT THIS TIME
--- NOTE | 2019-08-31 16:36 | NUR ---
IN PATIENTS ROOM TO DISCUSS DISCHARGE PLAN AND SHE VERBALLY AGREES ON EVERYTHING. PAPERS GIVEN TO THE PT AND SIGNED. REMOVED IV AT THIS TIME, AND TOOK OFF FISHER CRAB. PT HAS NO QUESTIONS AT THIS TIME
--- NOTE | 2019-08-31 16:37 | NUR ---
CALLED [facility] TO TELL THEM THAT THE PATIENT IS READY FOR DISCHARGE AND THEY STATE 'OKAY'
--- NOTE | 2019-08-31 17:05 | NUR ---
RN FROM [facility] ON FLOOR AT THIS TIME AND PUT THE PT IN A WHEELCHAIR. PT LEAVING THE FLOOR AT THIS TIME AND HAS ALL HER BELONGINGS AND PAPERS WITH HER
[2019-08-31] MEDS ORDERED: REMERON30 M1 PO (18:46)
--- NOTE | 2019-09-03 10:46 | NUR ---
IP 5 days isra per Concepcion at [facility]. Ref # [id number].
== END 2019-08-31 17:06 | disposition home health service (06) | DRG 71 ==
LOC: 4E 13:54
PROVIDERS: ADMIT Internal Medicine
DX: G93.40 Encephalopathy, unspecified (principal); F33.2 Major depressive disorder, recurrent severe without psychotic features; R00.0 Tachycardia, unspecified; J44.9 Chronic obstructive pulmonary disease, unspecified; E03.9 Hypothyroidism, unspecified; I10 Essential (primary) hypertension; G89.29 Other chronic pain; F17.210 Nicotine dependence, cigarettes, uncomplicated; F41.0 Panic disorder [episodic paroxysmal anxiety]; M19.91 Primary osteoarthritis, unspecified site; F29 Unspecified psychosis not due to a substance or known physiological condition; F43.10 Post-traumatic stress disorder, unspecified; F41.9 Anxiety disorder, unspecified

== ENCOUNTER 2019-08-31 17:15 | Inpatient (IN) | payer OTHER ==
[~2019-08-31] VITALS: Ht 152.4 cm; Wt 64.4 kg
--- NOTE | 2019-08-31 17:10 | NUR ---
MAURA MACIAS a 59 year old F admitted via wheel chair from the 4TH FLOOR as a voluntary admission. Arrived on unit at 1710. ALLERGIES: NKDA. Vital signs are: 97.5-94-18 168/100. The client signed the following forms with stated understanding: Authorization For The Release of Medical Information, Clothing List, Consent to Voluntary Admission and Hospitalization, Consent and Release Forms/Receipt of Rights, Acknowledgement of Advance Directive Information, Behavioral Health Consent Form, and Informed Consent of Medications. Admitted under the services of Dr. GUANACO LEON,[facility]. A search was conducted and hazardous articles were removed. Client was oriented to the unit. CLARITA SAM
[~2019-08-31 17:15] MED LIST changes: +CELEBREX100 MG PO
[2019-08-31 17:30] VITALS: BP 168/100
--- NOTE | 2019-08-31 17:30 | NUR ---
DR. FOURNIER MADE AWARE OF PT'S BLOOD PRESSURE. NEW ORDER RECEIVED FOR NORVASC 5MG PO NOW. PT IS ANXIOUS AND TEARFUL, RATES ANXIETY A "6 OR 7 OUT OF 10".
[2019-08-31 17:33] VITALS: BP 168/100
--- NOTE | 2019-08-31 17:45 | NUR ---
HOME MEDS REVIEWED WITH DR. FOURNIER. MADE AWARE OF CONSULT FOR MEDICAL MANAGEMENT.
[2019-08-31] MEDS ORDERED: REMERON30 M1 PO (18:46)
[2019-08-31 20:00] VITALS: BP 143/86
--- NOTE | 2019-09-01 03:24 | NUR ---
PATIENT ALERT AND ORIENTED. PATIENT WITH NO SHORT TERM OR LONG-TERM MEMORY DEFICITS. PATIENT WITH NO HALLUCINATIONS OR DELUSIONS. PATIENT WITH SUICIDAL OR HOMICIDAL IDEATIONS. PATIENT WITH NO RESPIRATORY DISTRESS. PATIENT SHOWERED THIS SHIFT. PATIENT AMBULATORY ON UNIT WITH STEADY GAIT AND WITHOUT ASSISTIVE DEVIDE. PATIENT MOOD IS STABLE. PATIENT AFFECT IS APPROPRIATE. PATIENT IS FOCUSED AND GOAL DIRECTED. PATIENT WITH CONCERNS WITH LOSING HER JOB. PATIENT STATED "I WAS CRYING ALOT EALIER TODAY. I HAVE A LOT GOING ON AT HOME, BUT I THOUGHT THAT DOCTOR GUANACO WAS JUST GOING TO COME TALK TO ME. I JUST NEEDED MEDICATION TO HELP WITH ANXIETY. I REALLY DID NOT WANT TO BE ADMITTED TO THIS UNIT AND I FEEL LIKE I GOT MORE ANXIOUS ONCE I REALIZED I WAS COMING HERE". SEE [facility] FLOW SHEET FOR SPECIFIC MONITORING. NO BEHAVIORS OR EPISIODES OF TEARFULNESS AT THIS TIME.
--- NOTE | 2019-09-01 05:59 | NUR ---
PATIENT SLEPT 6 HOURS OF INTERRRUPTED SLEEP THROUGHOUT SHIFT. Q 15 MINUTE CHECKS MAINTAINED. 24 HR chart check completed.
[2019-09-01 07:11] LABS: BUN 13 mg/dl (7-24); CHLORIDE 110 mmol/L (98-107); CHOLESTEROL 156 mg/dL (<200); CREATININE 0.69 mg/dL (0.55-1.02); HDL CHOLESTEROL 67 mg/dl (40-60); LDL CHOLESTEROL 72 mg/dL (9-159); SODIUM 144 mmol/L (136-145); TRIGLYCERIDES 85 mg/dl (<150); VLDL CHOLESTEROL 17 mg/dL (6-40)
[2019-09-01 07:35] LABS: VITAMIN D, 25-HYDROXY 42.4 ng/mL (30-100)
[2019-09-01 07:37] VITALS: BP 147/85
--- NOTE | 2019-09-01 11:39 | NUR ---
AM GROUP/SHIELA! PT ATTENDED AND PARTICIPATED IN ALL GROUP ACTIVITY. PT PLEASANT AND ON TASK WITH NO WEEPING OR ANXIETY EXPRESSED AT THIS TIME. PT WILL CONTINUE TO ATTEND AND PARTICIPATE IN FUTRUE RGOUP SESSIONS.
--- NOTE | 2019-09-01 14:12 | NUR ---
NO ADVERSE MOODS OR BEHAVIORS NOTED. PT ALERT TO PERSON, PLACE, TIME AND SIUTATION. PT STATED "I JUST WANTED TO SPEAK TO DR BLANC ABOUT MY ANXIETY, I REALLY DIDN'T WANT TO BE A PATIENT HERE." PT MED COMPLIANT WITHOUT DIFFICULTY, MED EDUCATION PROVIDED. PT CALM, MOOD IS STABLE. NO HALLUCINATIONS OR DELUSIONS NOTED. PT DENIES ANY SUICIDAL THOUGHTS OR BEHAVIORS. PT PLEASANT, INTERACTIVE WITH STAFF AND PEERS. PT AMBULATORY THROUGHOUT UNIT, GAIT STEADY. PT CONTINENT OF BOWEL AND BLADDER. PLAN IS TO MONITOR PT BEHAVIORS ON Q15 MIN SAFETY CHECKS, ENCOURAGE MED COMPLIANCE AND PROVIDE MED EDUCATION, PROVIDE EMOTIONAL SUPPORT AND 1:1 FOR PT TO VOICE FEELINGS.
--- NOTE | 2019-09-01 15:47 | NUR ---
PM GROUP/ART/GAME PT IN ATTENDANCE FOR MOST OF GROUP. PT TAKEN OUT OF GROUP FOR 15 MIN TO TALK WITH SW. PT RETURNED PLEASANT AND ON TASK TO PLAY A GAME OF "SORRY!" PT EXPRESSED NO WEEPING OR ANXIETY AT THIS TIME. PT WILL CONTINEU TO ATTEND AND PARTICIPATE IN FUTURE GROUP SESSIONS.
[2019-09-01 19:48] VITALS: BP 152/88
--- NOTE | 2019-09-02 00:54 | NUR ---
PATIENT ALERT AND ORIENTED. 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 PATIENT WITH NO HALLUCINATIONS OR DELUSIONS. PATIENT WITH SUICIDAL OR HOMICIDAL IDEATIONS. PATIENT WITH NO RESPIRATORY DISTRESS. PATIENT AMBULATORY ON UNIT WITH STEADY GAIT AND WITHOUT ASSISTIVE DEVICE. PATIENT MOOD IS STABLE. PATIENT AFFECT IS APPROPRIATE. PATIENT IS FOCUSED AND GOAL DIRECTED. PATIENT STATING " I WOULD REALLY HOPE I GET TO GO HOME TOMORROW". PATIENT INTERACTIVE WITH PEERS IN DINING AREA. [facility] FOR SPECIFIC MONITORING.
--- NOTE | 2019-09-02 03:45 | NUR ---
PATIENT WITH COMPLAINT OF NAUSEA AND UPSET STOMACH. DR GUTIERREZ UPDATED. PATIENT TO RECEIVE NEW ORDER FOR ZOFRAN. PATIENT MEDICATED WITH ZOFRAN AT 0321 AND PATIENT REPORTS MEDICATION EFFECTIVE AT THIS TIME
--- NOTE | 2019-09-02 06:17 | NUR ---
PATIENT SLEPT 8 HOURS OF INTERRUPTED SLEEP THROUGHOUT SHIFT. Q 15 MINUTE CHECKS MAINTAINED. 24 HR chart check completed.
[2019-09-02 07:51] VITALS: BP 137/83
--- NOTE | 2019-09-02 08:01 | NUR ---
MESSAGE LEFT FOR DR FOURNIER AT [phone] RE: PT DISCHARGE FOR TODAY AND MEDICAL MEDS NEEDING COMPLETED.
--- NOTE | 2019-09-02 08:10 | NUR ---
DR FOURNIER RETURNED CALLED AND ADVISED THAT SHE WILL BE IN TO COMPLETE PT MEDICAL MEDS FOR DISCHARGE.
[2019-09-02] MEDS ORDERED: CLONAZEPAM0.5 M2 PO (08:13)
[2019-09-02] MEDS ORDERED: MIRTAZAPINE15 M2 PO (08:13)
--- NOTE | 2019-09-02 08:21 | NUR ---
DR FOURNIER ON UNIT TO ASSESS PT.
[2019-09-02] MEDS ORDERED: AMLODIPINE BESYL5 MG PO (08:28)
--- NOTE | 2019-09-02 09:48 | NUR ---
PT ALERT TO PERSON, PLACE, TIME AND SITUATION. PT MED COMPLIANT WITHOUT DIFFICULTY, MED EDUCATION PROVIDED. PT GOAL DIRECTED TOWARDS DISCHARGE. NURSE PROVIDED EDUCATION RE: PT KEEPING ALL FOLLOW UP APPTS, PT RECEPTIVE. NO HALLUCINATIONS OR DELUSIONS NOTED. PT DENIES ANY SUICIDAL THOUGHTS. PT INTERACTIVE WITH STAFF AND PEERS. PT AMBULATORY THROUGHOUT UNIT, GAIT STEADY. PT CONTINENT OF BOWEL AND BLADDER. PLAN IS TO MONITOR PT BEHAVIORS ON Q15 MIN SAFETY CHECKS, ENCOURAGE MED COMPLIANCE AND PROVIDE MED EDUCATION AND PREPARE PT TO DISCHARGE.
--- NOTE | 2019-09-02 11:57 | NUR ---
AM GROUP/EXERCISE/STORY/ART PT ATTENDED AND PARTICIPATED IN ALL GROUP ACTIVITY. PT PLEASANT AND ON TASK WITH NO WEEPING OR ANXIETY EXPRESSED AT THIS TIME. PT WILL CONTINUE TO ATTEND AND PARTICIPATE IN FUTURE GROUP SESSIONS TO BEST OF PT ABILITY.
--- NOTE | 2019-09-02 11:58 | NUR ---
PT DISCHARGED TO HOME, ESCORTED OFF THE UNIT VIA WHEELCHAIR TO [facility]. PT BELONGINGS AND DISCHARGE PAPERWORK SENT WITH PT.
--- NOTE | 2019-09-03 10:54 | NUR ---
IP 5 days isra per Concepcion at [facility], Ref # [id number].
--- NOTE | 2019-09-03 14:46 | NUR ---
Late Entry. Pt. was discharged over the weekend and required follow up appointments scheduled. Call placed to Pt. and Left Message for her to return call to review Appointments. No answer x1. Called Patient Daughter to do well check and she states that patient was fine this morning when she spoke with her. Reviewed Follow up appointments with patient daughter [facility] 09/06/2019 3:30 p.m., Dr. Bravo 09/12/2019 9:45 a.m. Faxed Discharge Paperwork to [facility] and Dr. Bravo.
--- NOTE | 2019-09-03 14:54 | NUR ---
Received Call from Barbara Vendette at [facility]. Barbara States that patient is not allowed to return at discharge to [facility] due to Behaviors. Barbara states that Pt. daughter is aware that patient is not allowed to return. Will follow. Application Support Developer Tami Notifzuhair.
== END 2019-09-02 12:00 | disposition home or self-care (01) | DRG 885 ==
LOC: 3N 17:15
PROVIDERS: ADMIT Psychiatry & Neurology Psychiatry
DX: F33.2 Major depressive disorder, recurrent severe without psychotic features (principal); J44.9 Chronic obstructive pulmonary disease, unspecified; E03.9 Hypothyroidism, unspecified; I10 Essential (primary) hypertension; F41.0 Panic disorder [episodic paroxysmal anxiety]; M19.91 Primary osteoarthritis, unspecified site; G89.29 Other chronic pain; F17.210 Nicotine dependence, cigarettes, uncomplicated

== ENCOUNTER → 2019-10-25 | Outpatient (CLI) | payer OTHER ==
[~2019-10-25] MED LIST changes: +AMLODIPINE BESYL5 MG PO; +CLONAZEPAM0.5 M2 PO; +MIRTAZAPINE15 M2 PO; +REMERON30 M1 PO
== END | disposition home or self-care (01) ==
LOC: MRI 13:13
DX: M51.36 Other intervertebral disc degeneration, lumbar region (principal); M48.061 Spinal stenosis, lumbar region without neurogenic claudication; M50.322 Other cervical disc degeneration at C5-C6 level; M48.02 Spinal stenosis, cervical region

== ENCOUNTER 2020-02-06 23:10 | Emergency (ER) | payer OTHER ==
[~2020-02-06] VITALS: Ht 154.9 cm; Wt 68.0 kg
[2020-02-07 00:16] LABS: BILIRUBIN NEGATIVE (NEGATIVE); BLOOD NEGATIVE (NEGATIVE); CLARITY CLEAR (CLEAR); COLOR STRAW (YELLOW); GLUCOSE NEGATIVE (NEGATIVE); KETONE 1+ (NEGATIVE); NITRITE NEGATIVE (NEGATIVE); PH 6.5 (5.0-9.0); UROBILINOGEN 0.2 E.U./dl (0.2-1.0)
[2020-02-07 00:17] LABS: LEUKO ESTERASE NEGATIVE (NEGATIVE)
[2020-02-07 00:23] LABS: BACTERIA TRACE; RBC 0-2 rbc/hpf (0-2)
[2020-02-07 00:51] LABS: BASO % 0.4 % (0.0-1.0); EOS % 0.3 % (1.0-4.0); HEMATOCRIT 34.5 % (37.0-47.0); LYMPH # 0.9 10*3/uL (1.3-4.4); LYMPH % 12.6 % (27.0-41.0); MEAN CELL VOLUME 94.5 fl (81.0-99.0); MEAN CORPUSCULAR HGB 32.9 pg (27.0-31.0); MEAN CORPUSCULAR HGB CONC 34.8 g/dl (33.0-37.0); MEAN PLATELET VOLUME 8.8 fl (9.6-12.3); MONO # 0.5 10*3/uL (0.1-1.0); MONO % 6.5 % (3.0-9.0); NEUT # 5.5 10*3/uL (2.3-7.9); NEUT % 79.9 % (47.0-73.0); PLATELET COUNT AUTOMATED 304 10*3/uL (130-400); RED BLOOD COUNT 3.65 10*6/uL (4.10-5.10); RED CELL DISTRI WIDTH 12.5 % (0-14.5); WHITE BLOOD COUNT 6.9 10*3/uL (4.8-10.8)
[2020-02-07 01:08] LABS: ALKALINE PHOSPHATASE 79 U/L (45-117); BUN 18 mg/dl (7-24); CHLORIDE 96 mmol/L (98-107); CREATININE 0.69 mg/dL (0.55-1.02); POTASSIUM 3.8 mmol/L (3.5-5.1); SGOT/AST 17 IU/L (3-35); SGPT/ALT 21 U/L (12-78); SODIUM 128 mmol/L (136-145); TOTAL PROTEIN 7.5 gm/dL (6.4-8.2)
== END 2020-02-07 04:15 | disposition home or self-care (01) ==
LOC: ED 23:10
PROVIDERS: Emergency Medicine; Family Medicine
DX: R10.30 Lower abdominal pain, unspecified (principal); E87.1 Hypo-osmolality and hyponatremia; J44.9 Chronic obstructive pulmonary disease, unspecified; I10 Essential (primary) hypertension; Z79.899 Other long term (current) drug therapy; Z53.20 Procedure and treatment not carried out because of patient's decision for unspecified reasons

== ENCOUNTER → 2020-03-12 | Outpatient (CLI) | payer OTHER ==
[2020-03-12 15:16] LABS: BASO % 0.9 % (0.0-1.0); EOS # 0.1 10*3/uL (0.0-0.4); EOS % 1.6 % (1.0-4.0); HEMATOCRIT 38.3 % (37.0-47.0); LYMPH # 0.9 10*3/uL (1.3-4.4); MEAN CELL VOLUME 92.5 fl (81.0-99.0); MEAN CORPUSCULAR HGB 32.1 pg (27.0-31.0); MEAN CORPUSCULAR HGB CONC 34.7 g/dl (33.0-37.0); MEAN PLATELET VOLUME 8.7 fl (9.6-12.3); MONO # 0.4 10*3/uL (0.1-1.0); MONO % 9.5 % (3.0-9.0); NEUT % 66.8 % (47.0-73.0); PLATELET COUNT AUTOMATED 371 10*3/uL (130-400); RED BLOOD COUNT 4.14 10*6/uL (4.10-5.10); RED CELL DISTRI WIDTH 11.4 % (0-14.5); WHITE BLOOD COUNT 4.4 10*3/uL (4.8-10.8)
[2020-03-12 15:32] LABS: ALBUMIN 3.9 gm/dl (3.1-4.5); ALKALINE PHOSPHATASE 80 U/L (45-117); BUN 10 mg/dl (7-24); CHLORIDE 100 mmol/L (98-107); CHOLESTEROL 193 mg/dL (<200); CREATININE 0.82 mg/dL (0.55-1.02); HDL CHOLESTEROL 76 mg/dl (40-60); LDL CHOLESTEROL 102 mg/dL (9-159); SGOT/AST 17 IU/L (3-35); SGPT/ALT 16 U/L (12-78); SODIUM 133 mmol/L (136-145); T3 UPTAKE 34 % (31-39); TOTAL PROTEIN 7.9 gm/dL (6.4-8.2); TRIGLYCERIDES 74 mg/dl (<150); VLDL CHOLESTEROL 15 mg/dL (6-40)
[2020-03-12 15:59] LABS: VITAMIN D, 25-HYDROXY 39.3 ng/mL (30-100)
== END | disposition home or self-care (01) ==
LOC: LAB 14:58
PROVIDERS: Internal Medicine
DX: Z00.00 Encounter for general adult medical examination without abnormal findings (principal); E03.9 Hypothyroidism, unspecified; E55.9 Vitamin D deficiency, unspecified; I10 Essential (primary) hypertension

== ENCOUNTER 2021-05-01 21:47 | Emergency (ER) | payer SELFPAY ==
[~2021-05-01] VITALS: Ht 152.4 cm; Wt 79.4 kg
[2021-05-01] MEDS ORDERED: CYMBALTA30 MG PO (22:20)
== END 2021-05-01 23:18 | disposition left against medical advice (07) ==
LOC: ED 21:47
DX: M54.9 Dorsalgia, unspecified (principal); R20.0 Anesthesia of skin; Z53.21 Procedure and treatment not carried out due to patient leaving prior to being seen by health care provider

== ENCOUNTER → 2021-07-10 | Outpatient (CLI) | payer OTHER ==
[~2021-07-10] MED LIST changes: +CYMBALTA30 MG PO
== END | disposition home or self-care (01) ==
LOC: US 09:35
PROVIDERS: ATTEND Internal Medicine
DX: I73.9 Peripheral vascular disease, unspecified (principal); G64 Other disorders of peripheral nervous system; I73.00 Raynaud's syndrome without gangrene

== ENCOUNTER → 2021-08-05 | Outpatient (CLI) | payer OTHER ==
[2021-08-05 10:20] LABS: CREATININE 0.75 mg/dL (0.55-1.02)
== END | disposition home or self-care (01) ==
LOC: LAB 09:36 → CT 10:00
PROVIDERS: ATTEND Internal Medicine
DX: I70.201 Unspecified atherosclerosis of native arteries of extremities, right leg (principal)

== ENCOUNTER → 2022-10-08 | Outpatient (CLI) | payer OTHER ==
[2022-10-08 15:33] LABS: BASO % 0.7 % (0.0-1.0); EOS # 0.1 10*3/uL (0.0-0.4); EOS % 2.3 % (1.0-4.0); HEMATOCRIT 36.8 % (37.0-47.0); LYMPH # 0.9 10*3/uL (1.3-4.4); LYMPH % 21.4 % (27.0-41.0); MEAN CELL VOLUME 94.4 fl (81.0-99.0); MEAN CORPUSCULAR HGB 30.5 pg (27.0-31.0); MEAN CORPUSCULAR HGB CONC 32.3 g/dl (33.0-37.0); MEAN PLATELET VOLUME 9.2 fl (9.6-12.3); MONO # 0.4 10*3/uL (0.1-1.0); MONO % 8.4 % (3.0-9.0); NEUT # 2.9 10*3/uL (2.3-7.9); PLATELET COUNT AUTOMATED 367 10*3/uL (130-400); RED CELL DISTRI WIDTH 14.2 % (0-14.5); WHITE BLOOD COUNT 4.3 10*3/uL (4.8-10.8)
[2022-10-08 16:22] LABS: VITAMIN D, 25-HYDROXY 28.6 ng/mL (30-100)
[2022-10-08 16:41] LABS: ALKALINE PHOSPHATASE 92 U/L (46-116); BUN 16 mg/dl (9-23); CHLORIDE 100 mmol/L (98-107); CHOLESTEROL 201 mg/dL (<200); FREE T4 1.01 ng/dl (0.89-1.76); LDL CHOLESTEROL 120 mg/dL (9-159); POTASSIUM 4.2 mmol/L (3.4-5.1); SGPT/ALT 17 U/L (10-49); THYROID STIM HORMONE (HS) 12.372 uIU/ml (0.550-4.780); TOTAL PROTEIN 7.8 gm/dL (6.0-8.0); TRIGLYCERIDES 106 mg/dl (<150)
[2022-10-09 10:07] LABS: IMMUNOGLOBULIN G, QNT 1060 mg/dL (586-1602); IMMUNOGLOBULIN M, QNT 192 mg/dL (26-217)
== END | disposition home or self-care (01) ==
LOC: LAB 15:08
PROVIDERS: ATTEND Internal Medicine
DX: Z13.6 Encounter for screening for cardiovascular disorders (principal); Z13.29 Encounter for screening for other suspected endocrine disorder; Z13.89 Encounter for screening for other disorder; Z13.0 Encounter for screening for diseases of the blood and blood-forming organs and certain disorders involving the immune mechanism; Z13.1 Encounter for screening for diabetes mellitus; Z13.228 Encounter for screening for other metabolic disorders; E55.9 Vitamin D deficiency, unspecified

== ENCOUNTER → 2022-10-29 | Outpatient (CLI) | payer OTHER | END | disposition home or self-care (01) | LOC: RAD 00:18 | PROVIDERS: ATTEND Internal Medicine | DX: Z13.820 Encounter for screening for osteoporosis (principal); M81.0 Age-related osteoporosis without current pathological fracture ==

== ENCOUNTER → 2022-12-29 | Outpatient (CLI) | payer OTHER | END | disposition home or self-care (01) | LOC: RAD 15:42 | PROVIDERS: ATTEND Internal Medicine | DX: J44.9 Chronic obstructive pulmonary disease, unspecified (principal); R06.02 Shortness of breath ==

== ENCOUNTER → 2023-01-03 | Outpatient (CLI) | payer OTHER | END | disposition home or self-care (01) | LOC: MAMMO 01:01 | PROVIDERS: ATTEND Internal Medicine | DX: Z12.31 Encounter for screening mammogram for malignant neoplasm of breast (principal) ==

== ENCOUNTER → 2023-01-14 | Outpatient (CLI) | payer OTHER ==
[~2023-01-14] MED LIST changes: +ASPIRIN ADULT L81 M1 PO; +CETIRIZINE10 MG PO; +CYMBALTA60 MG PO; +LASIX40 MG PO; +NEURONTIN300 MG PO; +OYSTER SHELL 51 EAC3 PO; +TOPROL XL25 MG PO; +ZOCOR20 MG PO
== END | disposition home or self-care (01) ==
LOC: CARD 00:20
PROVIDERS: ATTEND Internal Medicine
DX: R06.02 Shortness of breath (principal)

== ENCOUNTER → 2023-01-25 | Outpatient (CLI) | payer OTHER | END | disposition home or self-care (01) | LOC: CT 12:52 | PROVIDERS: ATTEND Internal Medicine | DX: R91.8 Other nonspecific abnormal finding of lung field (principal); I25.10 Atherosclerotic heart disease of native coronary artery without angina pectoris ==

== ENCOUNTER → 2023-03-11 | Day surgery (SDC) | payer OTHER ==
[~2023-03-11] VITALS: Ht 160 cm; Wt 86.2 kg
[2023-03-11 08:20] VITALS: BP 127/79
[2023-03-11 10:27] VITALS: BP 179/93
[2023-03-11 10:42] VITALS: BP 141/70
[2023-03-11 10:57] VITALS: BP 138/81
[2023-03-11 11:12] VITALS: BP 129/40
[2023-03-11 11:27] VITALS: BP 140/81
[2023-03-12 11:07] LABS: ACID FAST SPEC PROCESSING Concentration (.)
== END ==
LOC: SDC 03-09 08:00
PROVIDERS: ATTEND Internal Medicine Critical Care Medicine
DX: J98.11 Atelectasis (principal); R91.1 Solitary pulmonary nodule; R91.8 Other nonspecific abnormal finding of lung field; I11.0 Hypertensive heart disease with heart failure; I50.9 Heart failure, unspecified; R06.00 Dyspnea, unspecified; E78.00 Pure hypercholesterolemia, unspecified; J44.9 Chronic obstructive pulmonary disease, unspecified; F32.A Depression, unspecified; F41.9 Anxiety disorder, unspecified; E03.9 Hypothyroidism, unspecified; Z87.891 Personal history of nicotine dependence; Z98.890 Other specified postprocedural states; Z98.818 Other dental procedure status

== ENCOUNTER → 2023-05-21 | Outpatient (CLI) | payer OTHER | END | disposition home or self-care (01) | LOC: CT 08:56 | PROVIDERS: ATTEND Internal Medicine | DX: J18.9 Pneumonia, unspecified organism (principal); R91.8 Other nonspecific abnormal finding of lung field; I25.10 Atherosclerotic heart disease of native coronary artery without angina pectoris; E04.1 Nontoxic single thyroid nodule; J44.9 Chronic obstructive pulmonary disease, unspecified; I10 Essential (primary) hypertension; Z98.890 Other specified postprocedural states ==

== ENCOUNTER 2023-07-20 07:35 | Emergency (ER) | payer OTHER ==
[~2023-07-20] VITALS: Ht 160 cm; Wt 86.2 kg
[2023-07-20] MEDS ORDERED: HYDROCODONE-AC1 EAC1 PO (08:17)
[2023-07-20] MEDS ORDERED: ASPIR-TRIN325 MG PO (08:17)
[2023-07-20] MEDS ORDERED: COLACE100 MG PO (08:19)
[2023-07-20] MEDS ORDERED: XANAX0.25 MG PO (08:19)
[2023-07-20] MEDS ORDERED: ADVAIR 250/501 EA INH (08:19)
[2023-07-20] MEDS ORDERED: ROBAXIN100 MG/1 M PO (08:20)
[2023-07-20] MEDS ORDERED: MIRALAX119 GM PO (08:21)
[2023-07-20] MEDS ORDERED: VENTOLIN 02.5 MG/3 M INH (08:22)
[2023-07-20 08:34] LABS: BASO % 0.5 % (0.0-1.0); EOS # 0.2 10*3/uL (0.0-0.4); EOS % 3.5 % (1.0-4.0); HEMATOCRIT 38.2 % (37.0-47.0); LYMPH # 1.8 10*3/uL (1.3-4.4); LYMPH % 31.3 % (27.0-41.0); MEAN CELL VOLUME 91.6 fl (81.0-99.0); MEAN CORPUSCULAR HGB 30.7 pg (27.0-31.0); MEAN CORPUSCULAR HGB CONC 33.5 g/dl (33.0-37.0); MEAN PLATELET VOLUME 9.3 fl (9.6-12.3); MONO # 0.4 10*3/uL (0.1-1.0); MONO % 6.9 % (3.0-9.0); NEUT # 3.3 10*3/uL (2.3-7.9); NEUT % 57.6 % (47.0-73.0); PLATELET COUNT AUTOMATED 328 10*3/uL (130-400); RED BLOOD COUNT 4.17 10*6/uL (4.10-5.10); RED CELL DISTRI WIDTH 13.7 % (0-14.5); WHITE BLOOD COUNT 5.8 10*3/uL (4.8-10.8)
[2023-07-20 08:45] LABS: BILIRUBIN Negative (Negative); BLOOD Negative (Negative); CLARITY Clear (Clear); COLOR Yellow (Yellow); GLUCOSE Negative (Negative); KETONE Negative (Negative); LEUKO ESTERASE Negative (Negative); NITRITE Negative (Negative); PH 6.5 (4.5-8.0); UROBILINOGEN 0.2 E.U./dl (0.0-1.0)
[2023-07-20 08:45] LABS: ACT PARTIAL THROMBO TIME 29.1 SECONDS (20.0-32.1)
[2023-07-20 08:57] LABS: ALKALINE PHOSPHATASE 88 U/L (46-116); BUN 10 mg/dl (9-23); CHLORIDE 106 mmol/L (98-107); LIPASE 38 U/L (12-53); POTASSIUM 4.1 mmol/L (3.4-5.1); SGPT/ALT 9 U/L (5-49); TOTAL PROTEIN 6.9 gm/dL (6.0-8.0)
[2023-07-20 09:06] LABS: EPITHELIAL CELLS 0-2; WBC 0-2 wbc/hpf (0-5)
[2023-07-20 09:07] LABS: RBC 0-2 rbc/hpf (0-2)
[2023-07-20] MEDS ORDERED: ONDANSETRON4 MG SL (10:43)
== END 2023-07-20 11:10 | disposition home or self-care (01) ==
LOC: ED 07:35
PROVIDERS: Emergency Medicine
DX: K59.00 Constipation, unspecified (principal); F41.9 Anxiety disorder, unspecified; F32.A Depression, unspecified; G43.909 Migraine, unspecified, not intractable, without status migrainosus; J44.9 Chronic obstructive pulmonary disease, unspecified; E78.00 Pure hypercholesterolemia, unspecified; I11.0 Hypertensive heart disease with heart failure; I50.9 Heart failure, unspecified; Z90.710 Acquired absence of both cervix and uterus; Z90.49 Acquired absence of other specified parts of digestive tract; Z98.890 Other specified postprocedural states

== ENCOUNTER → 2023-08-05 | Outpatient (CLI) | payer OTHER ==
[~2023-08-05] MED LIST changes: +ADVAIR 250/501 EA INH; +ASPIR-TRIN325 MG PO; +COLACE100 MG PO; +HYDROCODONE-AC1 EAC1 PO; +MIRALAX119 GM PO; +ONDANSETRON4 MG SL; +ROBAXIN100 MG/1 M PO; +VENTOLIN 02.5 MG/3 M INH
== END | disposition home or self-care (01) ==
LOC: MRI 08-01 13:00
PROVIDERS: ATTEND Internal Medicine
DX: C34.90 Malignant neoplasm of unspecified part of unspecified bronchus or lung (principal); I67.82 Cerebral ischemia; J32.0 Chronic maxillary sinusitis

== ENCOUNTER → 2024-03-26 | Outpatient (CLI) | payer OTHER ==
[2024-03-26 14:47] LABS: BUN 8 mg/dl (9-23); CHLORIDE 109 mmol/L (98-107); POTASSIUM 4.2 mmol/L (3.4-5.1)
== END | disposition home or self-care (01) ==
LOC: LAB 13:53
PROVIDERS: ATTEND Internal Medicine
DX: I10 Essential (primary) hypertension (principal); C34.90 Malignant neoplasm of unspecified part of unspecified bronchus or lung; R53.83 Other fatigue

== ENCOUNTER 2024-04-22 13:20 | Emergency (ER) | payer OTHER ==
[~2024-04-22] VITALS: Ht 160 cm; Wt 74.8 kg
[2024-04-22] MEDS ORDERED: SIMVASTATIN20 MG PO (13:31)
== END 2024-04-22 18:53 | disposition home or self-care (01) ==
LOC: ED 13:20
DX: S00.83XA Contusion of other part of head, initial encounter (principal); F41.9 Anxiety disorder, unspecified; F32.A Depression, unspecified; J44.9 Chronic obstructive pulmonary disease, unspecified; G43.909 Migraine, unspecified, not intractable, without status migrainosus; I11.0 Hypertensive heart disease with heart failure; I50.9 Heart failure, unspecified; E78.00 Pure hypercholesterolemia, unspecified; Z90.710 Acquired absence of both cervix and uterus; Z90.49 Acquired absence of other specified parts of digestive tract; Z98.890 Other specified postprocedural states; W01.198A Fall on same level from slipping, tripping and stumbling with subsequent striking against other object, initial encounter; Y93.89 Activity, other specified; Y92.009 Unspecified place in unspecified non-institutional (private) residence as the place of occurrence of the external cause; Y99.8 Other external cause status